=== PATIENT | female | born 1970 | race Caucasian/White ===

== ENCOUNTER 2016-05-12 13:45 | Emergency (ER) | payer MEDICAID ==
[2016-05-12] MEDS ORDERED: MORPHINE 4 MG/ML SYR ONE (15:14)
[2016-05-12] MEDS ORDERED: ONDANSETRON ODT 4 MG TAB ONE (15:14)
== END 2016-05-12 17:27 | disposition home or self-care (01) ==
LOC: ER 13:45
CPT/HCPCS: 72072; 72100; 72125; 73523; 96372